=== PATIENT | female | born 2000 | race Caucasian/White ===

== ENCOUNTER 2021-03-28 20:27 | Emergency (ER) | payer OTHER ==
[~2021-03-28] VITALS: Ht 157.5 cm; Wt 63.6 kg
[2021-03-28 20:32] VITALS: TEMP 98.1
[2021-03-28] MEDS ORDERED: NORCO 325 MG-51 TAB PO (22:07)
[2021-03-28] MEDS ORDERED: CLEOCIN HCL300 MG PO (22:07)
[2021-03-28 22:18] VITALS: BP 113/69; PULSE 70
== END 2021-03-28 22:22 | disposition home or self-care (01) ==
LOC: COL.ER 20:27
DX: K02.9 Dental caries, unspecified (principal); R07.9 Chest pain, unspecified; Z88.1 Allergy status to other antibiotic agents; Z20.822 Contact with and (suspected) exposure to COVID-19